=== PATIENT | female | born 1990 | race Caucasian/White ===

== ENCOUNTER 2024-07-19 07:56 | Inpatient (IN) | payer OTHER ==
[2024-07-19] MEDS: hydrALAZINE 20 MG/ML VIAL SLOW IVP PRN (08:39)
[2024-07-19] MEDS: Lactated Ringer's 1,000 ML IV SCH (08:39)
[2024-07-19] MEDS: Magnesium Sulfate 20 gm/500 ml 20 GM/500 ML BAG IVPB SCH (08:41)
[2024-07-19] MEDS ORDERED: Acetaminophen 500 MG TAB PO PRN (08:51)
[2024-07-19] MEDS ORDERED: Misoprostol 200 MCG TAB PR PRN (08:51)
[2024-07-19] MEDS ORDERED: hydrALAZINE 20 MG/ML VIAL SLOW IVP PRN ×3 (08:51)
[2024-07-19] MEDS ORDERED: Labetalol HCl 100 MG/20 ML VIAL SLOW IVP PRN (08:51)
[2024-07-19] MEDS ORDERED: Ondansetron PF 4 MG/2 ML Vial IVP PRN ×3 (08:51→13:25)
[2024-07-19] MEDS ORDERED: Carboprost 250 MCG/ML AMP IM PRN (08:51)
[2024-07-19] MEDS ORDERED: Calcium Gluc 4.6 MEQ/10 ML (100 MG/ML) SLOW IVP PRN (08:51)
[2024-07-19] MEDS ORDERED: fentaNYL 50 mcg/mL 1 mL Vial SLOW IVP PRN ×2 (08:51→13:25)
[2024-07-19] MEDS ORDERED: Lorazepam 2 MG/ML VIAL SLOW IVP PRN (08:51)
[2024-07-19] MEDS ORDERED: Promethazine HCl 25 MG/ML VIAL IM PRN ×2 (08:51→13:25)
[2024-07-19] MEDS ORDERED: Oxytocin 30 units/NS 500 ML 500 ML IV SCH (09:00)
[2024-07-19 09:07] VITALS: BMI 40.0
[2024-07-19] MEDS: Labetalol HCl 100 MG/20 ML VIAL ONE (09:15)
[2024-07-19 09:23] LABS: #Basophils 0.03 10x3/uL (0.0-0.2); #Eosinophils 0.01 10x3/uL (0.0-0.5); #Monocytes 1.21 10x3/uL (0.0-1.1); #Neutrophils 9.07 10x3/uL (1.5-8.4); %Basophils 0.2 % (0.0-2.0); %Eosinophils 0.1 % (0.0-6.0); %Lymphocytes 24.6 % (18.0-47.0); %Monocytes 8.5 % (0.0-10.0); %Neutrophils 63.5 % (40.0-75.0); Hematocrit 33.4 % (34.9-44.5); Hemoglobin 11.5 g/dL (12.0-15.5); Mean Corpuscular HGB CONC 34.4 g/dL (32.0-36.0); Mean Corpuscular Hemoglobin 30.7 pg (27.0-33.0); Mean Corpuscular Volume 89.1 fL (81.6-98.3); Platelet Count 217 10x3/uL (150-450); RBC Distribution Width 13.7 % (11.5-14.5); Red Blood Cell (RBC) Count 3.75 10x6/uL (3.90-5.03); White Blood Cell (WBC) Count 14.3 10x3/uL (3.5-10.5)
[2024-07-19 09:29] LABS: ALT (SGPT) 129 U/L (8-55); AST (SGOT) 140 U/L (5-34); Albumin 2.7 g/dL (3.5-5.0); Alkaline Phosphatase 109 U/L (40-110); Anion Gap 16 mmol/L (10-20); BUN (Urea Nitrogen) 26 mg/dL (7.0-18.7); Bilirubin, Total 0.3 mg/dL (0.2-1.2); Calc. Creatinine Clearance 164 mL/min (70-130); Calcium 8.7 mg/dL (7.8-10.44); Carbon Dioxide 16 mmol/L (22-29); Chloride 109 mmol/L (98-107); Estimated GFR 104; Globulin 2.8 g/dL (2.4-3.5); Glucose 87 mg/dL (70-105); Protein, Total 5.5 g/dL (6.0-8.3); Sodium 137 mmol/L (136-145)
[2024-07-19 09:31] LABS: Creatinine, Urine 327.2 mg/dL (47-110)
[2024-07-19] MEDS: Magnesium Sulfate 20 gm/500 ml 20 GM/500 ML BAG ONE (09:36)
[2024-07-19] MEDS: hydrALAZINE 20 MG/ML VIAL ONE (09:36)
[2024-07-19 09:44] LABS: HBsAg Index 0.21 S/CO (0-0.99); Hep B Surf Ag - L&D Non-Reactive S/CO (NonReactive)
[2024-07-19 09:45] LABS: Syphilis Antibody Nonreactive (Nonreactive); Syphilis Antibody Index 0.06 S/CO (<1.00 Non-Reactive)
[2024-07-19] MEDS: Labetalol HCl 100 MG/20 ML VIAL SLOW IVP PRN (10:44)
[2024-07-19 13:06] LABS: Analyzer IN Cardio CS NICU
[2024-07-19 13:08] LABS: Analyzer IN Cardio CS NICU; RapidComm Collect By OR NURSE; pH (Cord, venous) 7.345 (7.250-7.350)
[2024-07-19] MEDS ORDERED: Naloxone HCl 0.4 mg/ml Vial IVP PRN ×2 (13:25)
[2024-07-19] MEDS ORDERED: Moisturizing Cream (Eucerin) 113 GM JAR TOP PRN (13:25)
[2024-07-19] MEDS ORDERED: HYDROmorphone 0.5 MG/0.5 ML SYRINGE SLOW IVP PRN (13:25)
[2024-07-19] MEDS ORDERED: diphenhydrAMINE 50 MG/ML VIAL IVP PRN (13:25)
[2024-07-19] MEDS ORDERED: Meperidine HCl/PF 25 MG (1 mL) VIAL SLOW IVP PRN (13:25)
[2024-07-19] MEDS ORDERED: Naloxone HCl 0.4 mg/ml Vial IV PRN (13:25)
[2024-07-19] MEDS ORDERED: Communication Order-Pharmacy FS SCH (13:30)
[2024-07-19] MEDS ORDERED: Ketorolac Tromethamine 30 MG (1 mL) VIAL IVP SCH (13:30)
[2024-07-19] MEDS: CEFAZOLIN 2 GM VIAL ONE (14:48)
[2024-07-19] MEDS: Oxytocin 10 UNITS/ML VIAL ONE (14:49)
[2024-07-19] MEDS: Labetalol HCl 100 MG/20 ML VIAL SLOW IVP SCH (14:49)
[2024-07-19] MEDS: fentaNYL 50 mcg/mL 1 mL Vial ONE (14:49)
[2024-07-19] MEDS: Ondansetron PF 4 MG/2 ML Vial ONE (14:49)
[2024-07-19] MEDS: Morphine PF 10 MG/10 ML VIAL ONE (14:49)
[2024-07-19] MEDS: Promethazine HCl 25 MG/ML VIAL ONE (14:50)
[2024-07-19] MEDS: Ketorolac Tromethamine 30 MG (1 mL) VIAL IVP PRN (21:22)
[2024-07-20] MEDS: Labetalol HCl 200 MG TAB PO SCH (07:09)
[2024-07-20] MEDS ORDERED: Promethazine HCl 25 MG/ML VIAL IM PRN (13:38)
[2024-07-20] MEDS ORDERED: Acetaminophen 325 MG TAB PO PRN (13:38)
[2024-07-20] MEDS ORDERED: Ondansetron PF 4 MG/2 ML Vial IVP PRN (13:38)
[2024-07-20] MEDS ORDERED: Methylergonovine 0.2 MG/ML VIAL IM PRN (13:38)
[2024-07-20] MEDS ORDERED: Lanolin Ointment 7 GM TUBE TOP PRN (13:38)
[2024-07-20] MEDS ORDERED: diphenhydrAMINE 25 MG CAP PO PRN (13:38)
[2024-07-20] MEDS ORDERED: Calcium Gluc 4.6 MEQ/10 ML (100 MG/ML) SLOW IVP PRN (13:38)
[2024-07-20] MEDS ORDERED: Misoprostol 200 MCG TAB PR PRN (13:38)
[2024-07-20] MEDS ORDERED: Simethicone Chewable 80 MG TAB PO PRN (13:38)
[2024-07-20] MEDS ORDERED: Lorazepam 2 MG/ML VIAL SLOW IVP PRN (13:38)
[2024-07-20] MEDS ORDERED: hydrALAZINE 20 MG/ML VIAL SLOW IVP PRN (13:38)
[2024-07-20] MEDS: HYDROcodone/Acetaminophen 5/325 mg Tablet PO PRN ×2 (14:37→18:20)
[2024-07-20] MEDS: Ferrous Sulfate 325 MG TAB PO SCH (15:17)
[2024-07-20] MEDS: Docusate 100 MG CAP PO SCH ×2 (15:17→20:04)
[2024-07-20] MEDS: Prenatal Vitamin 1 TAB PO SCH (15:17)
[2024-07-20] MEDS: Labetalol HCl 100 MG TAB PO SCH (15:21)
[2024-07-20] MEDS: Ibuprofen 800 MG TAB PO SCH (18:21)
[2024-07-21] MEDS: Ferrous Sulfate 325 MG TAB PO SCH (03:52)
[2024-07-21 05:12] LABS: Hematocrit 24.5 % (34.9-44.5); Hemoglobin 8.1 g/dL (12.0-15.5); Mean Corpuscular HGB CONC 33.1 g/dL (32.0-36.0); Mean Corpuscular Hemoglobin 30.3 pg (27.0-33.0); Mean Corpuscular Volume 91.8 fL (81.6-98.3); Mean Platelet Volume 11.4 fL (7.4-10.4); Platelet Count 126 10x3/uL (150-450); RBC Distribution Width 13.8 % (11.5-14.5); Red Blood Cell (RBC) Count 2.67 10x6/uL (3.90-5.03); White Blood Cell (WBC) Count 9.6 10x3/uL (3.5-10.5)
[2024-07-21] MEDS: Boostrix 0.5 ML (Tdap) VIAL (>/=7 yrs of age) IM ONE (08:18)
[2024-07-21] MEDS: Prenatal Vitamin 1 TAB PO SCH (10:37)
[2024-07-22 11:09] VITALS: BP 143/77; TEMP 98.2
== END 2024-07-22 13:09 | disposition home or self-care (01) | DRG 788 ==
LOC: CSHLD/OP 07:56 → CSHLD 08:47 → CSHPP 07-20 14:15
PROVIDERS: ADMIT Obstetrics & Gynecology; ATTEND Obstetrics & Gynecology
PROC: 10D00Z1 Extraction of Products of Conception, Low, Open Approach (ICD-10-PCS; principal; 2024-07-19)
DX: O14.14 Severe pre-eclampsia complicating childbirth (principal); O76 Abnormality in fetal heart rate and rhythm complicating labor and delivery; Z3A.32 32 weeks gestation of pregnancy; O34.211 Maternal care for low transverse scar from previous cesarean delivery; O36.5930 Maternal care for other known or suspected poor fetal growth, third trimester, not applicable or unspecified; Z37.0 Single live birth
CPT/HCPCS: 36415; 51702; 76815; 80053; 82570; 82805; 84156; 84560; 85025; 85027; 86780; 86850; 86900; 86901; 87340; 88307; 99285; J0360; J1885; J2274; J2405; J2550; J2590; J3010; J3475; J7120